=== PATIENT | female | born 1980 | race Caucasian/White ===

== ENCOUNTER → 2018-02-18 | Outpatient (CLI) | payer BC ==
[~2018-02-18] MED LIST: ESCI20; KETO10 PO; OXYACE5T PO; PROM25 PO; RXONDA4ODT MM; TAMS.4ER PO
== END ==
LOC: PLD 07:40 → LAB SHORT 07:40
DX: N92.0 Excessive and frequent menstruation with regular cycle (principal)
CPT/HCPCS: 88305

== ENCOUNTER 2018-09-02 11:48 | Day surgery (SDC) | payer BC ==
[~2018-09-02] VITALS: Ht 165.1 cm; Wt 93.0 kg
[~2018-09-02 11:48] MED LIST changes: +Advil Migraine200 MG PO
--- NOTE | 2018-09-02 12:34 | NUR ---
09/02/18 1234 Jude Mathis AT BEDSIDE. CALL LIGHT WITHIN REACH
--- NOTE | 2018-09-02 13:49 | NUR ---
09/02/18 1349 Lj Story DEFICIT [address]. DR RINCON AWARE.
--- NOTE | 2018-09-02 14:38 | NUR ---
09/02/18 [id number] Ebonie Bowens PT IS RESTING IN RECLINER WITH HER AT HER SIDE, VSS, CALL LIGHT IS IN REACH, SHE IS COVERED IN WARM BLANKETS AND TOLERATING FLUIDS. SHE HAS BEEN MEDICATED FOR PAIN (SEE VS RECORD). NO NAUSEA REPORTED. PT REPORTS MILD SORE THROAT AND STATES THAT COOL FLUIDS FEEL GOOD.
== END 2018-09-02 15:15 | disposition home or self-care (01) ==
LOC: ORSCSDS 11:48
PROVIDERS: Obstetrics & Gynecology
PROC: 0UT74ZZ Resection of Bilateral Fallopian Tubes, Percutaneous Endoscopic Approach (ICD-10-PCS; principal; 2018-09-02 13:00)
PROC: 0DNU4ZZ Release Omentum, Percutaneous Endoscopic Approach (ICD-10-PCS; principal; 2018-09-02 13:00)
PROC: 0UDB8ZX Extraction of Endometrium, Via Natural or Artificial Opening Endoscopic, Diagnostic (ICD-10-PCS; principal; 2018-09-02 13:00)
DX: N92.0 Excessive and frequent menstruation with regular cycle (principal); R10.2 Pelvic and perineal pain; N94.6 Dysmenorrhea, unspecified; N73.6 Female pelvic peritoneal adhesions (postinfective); D52.0 Dietary folate deficiency anemia; E66.9 Obesity, unspecified; Z68.34 Body mass index [BMI] 34.0-34.9, adult
CPT/HCPCS: 88302; 88305; A9270-GY; J1100; J1885; J2250; J2405; J2704; J2710; J3010; J7120

== ENCOUNTER 2018-11-15 07:26 | Day surgery (SDC) | payer BC ==
[~2018-11-15] VITALS: Ht 165.1 cm; Wt 96.1 kg
--- NOTE | 2018-11-15 08:00 | NUR ---
Ambulatory in Day Surgery History, Chart, Medications and Allergies reviewed before start of procedure.Lungs clear T/O to Auscultation. Patient confirms NPO status and agrees with scheduled surgery. Patient reports completing Chlorhexadine shower X2 prior to admission to hospital.Surgical site prepped with 2% Chlorhexidine cloth wipe.
--- NOTE | 2018-11-15 11:57 | NUR ---
PT TO ROOM FROM SURGERY ABOUT 10 MIN AGO. REPORTS TOLERABLE DISCOMFORT AT THIS TIME. VSS. PT ORIENTED TO RM. DRESSINGS CDI. HERNANDEZ IN PLACE, OFF FLOOR. PT BELONGINGS IN ROOM.
--- NOTE | 2018-11-15 17:21 | NUR ---
SHIFT SUMMARY PT HAD LAVH TODAY. PAIN HAS BEEN CONTROLLED WELL WITH PO PAIN MED. PT HAS BEEN RESTING MUCH OF THE AFTERNOON. HERNANDEZ IN PLACE, OFF FLOOR. DRESSINGS TO ABD CDI. TOLERATING FLUIDS AND SNACKS. FAMILY HAS BEEN AT BEDSIDE MUCH OF THE DAY. PT HAS NOT REPORTED N/V.
[2018-11-16 05:11] LABS: BASOPHILS ABSOLUTE AUTO 0.04 K/mm3 (0.00-0.23); BASOPHILS PERCENT AUTO 0 % (0-2); EOSINOPHILS ABSOLUTE AUTO 0.01 K/mm3 (0.00-0.68); EOSINOPHILS PERCENT AUTO 0 % (0-6); Hematocrit 34.9 % (33.0-51.0); Hemoglobin 11.4 g/dL (11.5-16.0); IMMATURE GRAN ABSOLUTE AUTO 0.06 K/mm3 (0.00-0.10); IMMATURE GRAN PERCENT AUTO 0 % (0-1); LYMPHOCYTES ABSOLUTE AUTO 2.97 K/mm3 (0.84-5.20); LYMPHOCYTES PERCENT AUTO 17 % (21-46); MONOCYTES ABSOLUTE AUTO 1.43 K/mm3 (0.16-1.47); MONOCYTES PERCENT AUTO 8 % (4-13); Mean Corpuscular HGB 29.9 pg (26.0-34.0); Mean Corpuscular HGB Conc 32.7 g/dL (31.5-36.5); Mean Platelet Volume 9.6 fL (9.1-12.4); NEUTROPHILS ABSOLUTE AUTO 13.14 K/mm3 (1.96-9.15); NEUTROPHILS PERCENT AUTO 75 % (41-73); Platelet Count 339 K/mm3 (150-400); RDW Coefficient Variation 13.1 % (11.7-14.2); RDW Standard Deviation 43.5 fL (35.1-46.3); Red Blood Cell Count 3.81 M/mm3 (3.80-5.20); White Blood Cell Count 17.65 K/mm3 (4.00-11.30)
[2018-11-16 05:19] LABS: Mean Corpuscular Volume 92 fL (80-100)
--- NOTE | 2018-11-16 07:05 | NUR ---
SUMMARY: POD [address] VIANEY RINCON. VSS, AFEBRILE, TOLERATING REG DIET AND PASSING MINIMAL FLATUS. PT UP IN ROOM AND AMBULATED HALLS ONCE WITH FAMILY. PAIN WELL CONTROLLED WITH 2 TABS NORCO AND TORDAL. DAVID SMITH'Kareem WNL THIS AM AND AWAIT PT VOID. ENCOURAGE OOB ACTIVITY.
[2018-11-16] MEDS ORDERED: IBUP800 PO (09:53)
[2018-11-16] MEDS ORDERED: ACET325 PO (09:54)
[2018-11-16] MEDS ORDERED: DOCU100 PO (09:54)
[2018-11-16] MEDS ORDERED: ESTRADIOL1 EAC1 TD (09:59)
[2018-11-16] MEDS ORDERED: HYDR1TAB94 PO (10:00)
--- NOTE | 2018-11-16 10:28 | NUR ---
DISCHARGE DISCHARGE INSTRUCTIONS GIVEN TO PT BY RN. REPORTS UNDERSTANDING. RX AND PRINTED INSTRUCTIONS SENT WITH PT. IV DC'D WNL. PERSONAL BELONGINGS SENT HOME WITH PT. PT WALKED OUT INDEPENDANTLY WITH FAMILY. PT VOIDING, TOLERATING FOOD AND FLUIDS, INCISIONS/DRESSINGS CDI. REPORTS NO FURTHER QUESTIONS OR COMPLAINTS.
== END 2018-11-16 10:26 | disposition home or self-care (01) ==
LOC: ORSCMMR 07:26 → ORD 09:00 → SURS 11:45 → ORSCMMR 11-16 10:26
PROVIDERS: Obstetrics & Gynecology
PROC: 0UT2FZZ Resection of Bilateral Ovaries, Via Natural or Artificial Opening With Percutaneous Endoscopic Assistance (ICD-10-PCS; principal; 2018-11-15 09:00)
PROC: 0UT9FZZ Resection of Uterus, Via Natural or Artificial Opening With Percutaneous Endoscopic Assistance (ICD-10-PCS; principal; 2018-11-15 09:00)
DX: R10.2 Pelvic and perineal pain (principal); N94.89 Other specified conditions associated with female genital organs and menstrual cycle
CPT/HCPCS: 36415; 85025; 88307; A9270-GY; J0690; J1100; J1885; J2250; J2370; J2405; J2704; J2710; J2765; J3010; J7120

== ENCOUNTER → 2022-07-03 | Outpatient (CLI) | payer BC ==
[~2022-07-03] MED LIST changes: +ACET325 PO; +DOCU100 PO; +ESTRADIOL1 EAC1 TD; +HYDR1TAB94 PO; +IBUP800 PO
== END | disposition home or self-care (01) ==
LOC: LAB 12:50 → LAB SHORT 12:50 → PLD 12:50
DX: D23.71 Other benign neoplasm of skin of right lower limb, including hip (principal)
CPT/HCPCS: 88305